=== PATIENT | male | born 1990 | race Asian ===

== ENCOUNTER 2024-04-08 08:27 | Outpatient (REF) | payer OTHER, SELFPAY ==
--- NOTE | ~2024-04-08 | US_ITS ---
EXAMINATION: US RETROPERITONEAL COMPLETE (RENAL) CLINICAL INFORMATION: Two-month history of suprapubic pain, history of renal stones. COMPARISON: None available. TECHNIQUE: Real-time imaging of the kidneys and bladder. FINDINGS: RIGHT KIDNEY: 11.7 x 4.6 x 5.2 cm (SAG x AP x TRV). The kidney is normal in size, contour, and echogenicity. Renal cortical thickness is normal. No calculi or focal parenchymal lesions. No hydronephrosis. LEFT KIDNEY: 10.7 x 5.1 x 4.4 cm (SAG x AP x TRV). The kidney is normal in size, contour, and echogenicity. Renal cortical thickness is normal. No calculi or focal parenchymal lesions. No hydronephrosis. BLADDER: Well distended and normal. Bilateral ureteral jets are demonstrated. Prevoid bladder volume is 380.0 mL. Postvoid bladder volume is 23.2 mL. The prostate volume is 8.8 mL. US/US retroperitoneal comp IMPRESSION: 1. Normal renal ultrasound. 2. Small post void residual.
== END 2024-04-08 08:28 | disposition home or self-care (01) ==
LOC: HO.UMASIMG 08:27
PROVIDERS: Visit Provider Family Medicine
DX: R10.9 Unspecified abdominal pain (principal)
CPT/HCPCS: 76770